=== PATIENT | female | born 1995 | race Two or more races ===

== ENCOUNTER 2022-03-25 18:46 | Inpatient (IN) | payer MEDICAID, OTHER ==
[~2022-03-25] VITALS: Ht 167.6 cm; Wt 118.8 kg
--- NOTE | 2022-03-25 19:10 | NUR ---
Direct bed to 8. Dr Styles notified of S/S -in to see patient
--- NOTE | 2022-03-25 19:16 | NUR ---
CODE STROKE 191
[2022-03-25] MEDS ORDERED: IOHEXOL-350 100 ML VIAL IV ONE (19:19)
[2022-03-25] MEDS ORDERED: IV NS 0.9% 250 ML IV ONE (19:20)
--- NOTE | 2022-03-25 19:27 | NUR ---
back from ct
--- NOTE | 2022-03-25 19:28 | NUR ---
NEUROLOGIST DR. ESCOBAR ON TELE SCREEN.
--- NOTE | 2022-03-25 19:34 | NUR ---
NEUROLOGIST DR. JACOBS ON THE PHONE WITH DR. MORRISON.
--- NOTE | 2022-03-25 19:38 | NUR ---
covid swab collected sent to lab
--- NOTE | 2022-03-25 19:55 | NUR ---
MRSA SWAB COLLECTED AND SENT TO LAB. PATIENT'S BELONGINGS LIST DONE.
--- NOTE | 2022-03-25 19:56 | NUR ---
IJEOMA IV LINE EST, UNABLE TO DRAW BLOOD WORK. CALLED HOUSE SUP FOR MID LINE
[2022-03-25] MEDS ORDERED: IV NS 0.9% 1,000 ML BAG IV ONE (20:00)
[2022-03-25] MEDS ORDERED: HYDROMORPHONE INJ 2 MG/ML DISP.SYRIN IV ONE ×2 (20:00→21:30)
[2022-03-25] MEDS ORDERED: diphenhydrAMINE HCL 25 MG CAPSULE PO ONE (20:00)
[2022-03-25] MEDS ORDERED: HYDROMORPHONE INJ 2 MG/ML DISP.SYRIN ONE ×2 (20:04→21:22)
[2022-03-25] MEDS ORDERED: diphenhydrAMINE HCL 50 MG CAPSULE ONE (20:05)
--- NOTE | 2022-03-25 20:48 | NUR ---
MIDLINE NURSE AT BEDSIDE
--- NOTE | 2022-03-25 20:51 | NUR ---
PT REFUSED MIDLINE. ER INFORMED.
[2022-03-25] MEDS ORDERED: diphenhydrAMINE HCL 50 MG/ML VIAL ONE (21:22)
[2022-03-25] MEDS ORDERED: diphenhydrAMINE HCL 50 MG/ML VIAL IM ONE (21:30)
--- NOTE | 2022-03-25 21:30 | NUR ---
BLOOD WORK COLLECTED SENT TO LAB
[2022-03-25 21:49] LABS: BASOPHILS # (AUTO) 0.1 K/uL (0.0-0.2); BASOPHILS % (AUTO) 0.7 % (0.0-2.0); HEMATOCRIT 32 % (33-45); HEMOGLOBIN 10.2 g/dL (11.5-14.8); LYMPHOCYTES # (AUTO) 2.3 K/uL (0.8-4.8); LYMPHOCYTES % (AUTO) 31.2 % (20.0-44.0); MEAN CORPUSCULAR HGB CONC 32 g/dl (31.0-36.0); MEAN CORPUSCULAR VOLUME 74 fL (82-100); MONOCYTES # (AUTO) 0.3 K/uL (0.1-1.30); MONOCYTES % (AUTO) 4.1 % (2.0-12.0); NEUTROPHILS # (AUTO) 4.5 K/uL (1.8-8.9); PLATELET COUNT (AUTO) 298 K/uL (150-450); RED BLOOD CELL COUNT(AUTO) 4.36 MIL/uL (4.0-5.2); WHITE BLOOD COUNT (AUTO) 7.2 K/uL (4.3-11.0)
[2022-03-25 22:33] LABS: CALCIUM, SERUM 8.8 mg/dL (8.5-10.1); CARBON DIOXIDE 27 mmol/L (21-32); CHLORIDE 105 mmol/L (98-107); CREATININE 0.9 mg/dL (0.6-1.3); GLUCOSE 89 mg/dL (74-106); POTASSIUM 3.9 mmol/L (3.5-5.1); SODIUM SERUM 140 mmol/L (136-145); UREA NITROGEN, BLOOD 11 mg/dL (7-18)
[2022-03-25 22:39] LABS: ALANINE AMINOTRANSFERASE 40 U/L (12-78); ALBUMIN 3.6 g/dL (3.4-5.0); ALKALINE PHOSPHATASE 139 U/L (46-116); ASPARTATE AMINOTRANSFERASE 17 U/L (15-37); BILIRUBIN,DIRECT 0.1 mg/dL (0.0-0.2); BILIRUBIN,TOTAL 0.2 mg/dL (0.2-1.0); TOTAL PROTEIN, SERUM 8.1 g/dL (6.4-8.2)
--- NOTE | 2022-03-25 23:05 | NUR ---
REPORT GIVEN TO JOVANA GALAN
--- NOTE | 2022-03-25 23:25 | NUR ---
PT TRANSFERRED UNDER ACLS
--- NOTE | 2022-03-25 23:43 | NUR ---
ROOF PROMENADE TILE SETTER NOTE PATIENT CAME IN UNIT AT [facility] [employer] ACCOMMODATED BY 2 ER PERSONNEL. PATIENT A/OX4. UNCOOPERATIVE. C/O 08/06 PAIN GENERALIZED AND ASKING FOR PAIN MEDICATION ALREADY. ALREADY MESSAGED CERTIFIED INDUSTRIAL HYGIENIST ARNULFO MAGAÑA DNP. PER DOCTOR, HE HAS NOT SEEN PATIENT YET. AWAITING FOR DOCTOR ARNULFO. PATIENT REFUSING V/S AND TELE MONITOR, AND ASSESSMENTS/QUESTIONING AT THIS TIME, BEFORE SEEN BY MD. WILL CONTINUE WITH ADMISSION PROCESS PATIENT ALLOWS.
[2022-03-26] MEDS ORDERED: LIDOCAINE 1% INJ 50 ML MDV IJ ONE ×2 (00:50→01:00)
[2022-03-26] MEDS ORDERED: diphenhydrAMINE HCL 50 MG/ML VIAL IV ONE ×2 (01:00→01:30)
[2022-03-26] MEDS ORDERED: HYDROMORPHONE INJ 2 MG/ML DISP.SYRIN IV ONE (01:00)
[2022-03-26] MEDS ORDERED: ACETAMINOPHEN 325 MG TABLET PO PRN (02:00)
[2022-03-26] MEDS ORDERED: MAGNESIUM HYDROXIDE 30 ML UDC PO PRN (02:00)
[2022-03-26] MEDS ORDERED: ONDANSETRON HCL/PF 4 MG/2 ML VIAL IVP PRN (02:00)
[2022-03-26] MEDS ORDERED: diphenhydrAMINE HCL ELIX 25 MG/10 ML UDC PO PRN (02:00)
[2022-03-26] MEDS ORDERED: ENOXAPARIN SODIUM 120 MG/0.8 ML DISP.SYRIN SQ SCH (02:00)
[2022-03-26 02:16] VITALS: BP 146/72
--- NOTE | 2022-03-26 03:07 | NUR ---
CERTIFIED TECHNICIAN SPECIALIST NOTE PATIENT REFUSING SCHEDULED LOVENOX. WANTING HER PAIN MEDICATION AGAIN. ONLY BEEN 89 MINUTES SINCE THE LAST DILAUDID GIVEN. PRN DOSE ORDERED Q3, TOLD THE PATIENT THE NEXT WOULD BE @0420 SINCE I JUST GAVE IT TO HER @0119 PER PATIENT "PAGE THE DOCTOR COS I CANNOT WAIT THAT LONG". MESSAGED JUKEBOX COIN COLLECTOR DOCTOR. PER JUKEBOX COIN COLLECTOR ARCHANA ROMEROAY TO START PRN AT 0300 AM.
[2022-03-26] MEDS ORDERED: IV LR 1000 ML 1,000 ML IV PRN (03:30)
[2022-03-26] MEDS: HYDROMORPHONE INJ 2 MG/ML DISP.SYRIN IV PRN ×2 (04:56→08:46)
[2022-03-26 05:00] VITALS: BP 138/72
[2022-03-26] MEDS: ENOXAPARIN SODIUM 60 MG/0.6 ML DISP.SYRIN SQ SCH ×2 (05:06→15:45)
--- NOTE | 2022-03-26 05:48 | NUR ---
CIRCULAR TANK COOPER NOTE- OMNICELL DISCREPANCY PULLED 2 2MG OF DILAUDID INSTEAD OF ONE. MISSED THE ORDER, THOUGHT IT WAS FOR 3 MG BUT ORDER IS 2MG. TIRED TO SOLVE DISCREPANCY WITH CHARGE NURSE BUT OMNICELL IS SAYING NO DISCREPANCY. RE-COUNTED X3 WITH CHARGE NURSE TO MAKE SURE. 13 DILAUDID IN OMNICELL AT THIS TIME. WASTED THE DILAUDID IN PROPER BIN WITNESSED BY CHARGE.
--- NOTE | 2022-03-26 07:30 | NUR ---
PT RECEIVED RESTING COMFORTABLY IN BED. NO S/S OR C/O PAIN OR DISTRESS NOTED. SIDE RAILS UP X2. CALL LIGHT LEFT WITHIN REACH. WILL CONTINUE PLAN OF CARE.
[2022-03-26 08:00] VITALS: BP 108/59
[2022-03-26] MEDS ORDERED: ENOX40DI SQ (08:27)
[2022-03-26] MEDS: PANTOPRAZOLE 40 MG TABLET.DR PO SCH (08:47)
[2022-03-26 12:00] VITALS: BP 120/52
[2022-03-26] MEDS: HYDROMORPHONE 1 MG/1 ML DISP.SYRIN IV PRN ×5 (12:03→23:55)
[2022-03-26] MEDS: ASPIRIN 81 MG TAB.CHEW PO SCH (12:30)
[2022-03-26 14:39] LABS: BASOPHILS # (AUTO) 0.1 K/uL (0.0-0.2); BASOPHILS % (AUTO) 0.8 % (0.0-2.0); EOSINOPHILS % (AUTO) 2.4 % (0.0-6.0); HEMATOCRIT 30 % (33-45); HEMOGLOBIN 9.6 g/dL (11.5-14.8); LYMPHOCYTES # (AUTO) 2.9 K/uL (0.8-4.8); LYMPHOCYTES % (AUTO) 40.2 % (20.0-44.0); MEAN CORPUSCULAR HGB CONC 32 g/dl (31.0-36.0); MEAN CORPUSCULAR VOLUME 73 fL (82-100); MONOCYTES # (AUTO) 0.4 K/uL (0.1-1.30); MONOCYTES % (AUTO) 5.2 % (2.0-12.0); NEUTROPHILS # (AUTO) 3.7 K/uL (1.8-8.9); NEUTROPHILS % (AUTO) 51.4 % (43.0-81.0); PLATELET COUNT (AUTO) 374 K/uL (150-450); RED BLOOD CELL COUNT(AUTO) 4.08 MIL/uL (4.0-5.2); WHITE BLOOD COUNT (AUTO) 7.2 K/uL (4.3-11.0)
[2022-03-26 15:11] LABS: BILIRUBIN,TOTAL 0.2 mg/dL (0.2-1.0); CALCIUM, SERUM 8.1 mg/dL (8.5-10.1); CREATININE 0.9 mg/dL (0.6-1.3); MAGNESIUM 1.9 mg/dL (1.8-2.4); POTASSIUM 3.9 mmol/L (3.5-5.1)
[2022-03-26 15:35] LABS: THYROID STIMULATING HORMONE 2.155 uIU/mL (0.358-3.74)
[2022-03-26 16:00] VITALS: BP 109/73
[2022-03-26 16:59] LABS: LYMPHOCYTES % (MANUAL) 34 % (16-48); MONOCYTES % (MANUAL) 2 % (0-11.0); NEUTROPHILS % (MANUAL) 64 (42-76)
[2022-03-26] MEDS: [UNRECOGNIZED DRUG - OTHER] IV PRN ×2 (17:15→23:56)
--- NOTE | 2022-03-26 18:55 | NUR ---
CHANGE OF SHIFT REPORT PT RESTING COMFORTABLY IN BED. NO S/S OR C/O PAIN OR DISTRESS NOTED. SIDE RAILS UP X2, CALL LIGHT LEFT WITHIN REACH. PT KEPT CLEAN, DRY, AND COMFORTABLE. NO SIGNIFICANT CHANGES SINCE PREVIOUS SHIFT. WILL GIVE REPORT TO MIRTA WHALEY.
[2022-03-26 20:00] VITALS: BP 119/62
--- NOTE | 2022-03-26 20:05 | NUR ---
RN OPENING NOTES RECEIVED PT IN BED, AWAKE, SITTING UPRIGHT. AOx4, ABLE TO MAKE NEEDS KNOWN. ON RA AND TOLERATING WELL. NO SOB NOTED. NO S/SX OF RESPIRATORY DISTRESS NOTED. TELE MONITOR REFUSED PER DAY NURSE. IV ACCESS IN LFA #24G AND NANDA MIDLINE RUNNING 1/2 NS @ 150 ML/HR. SAFETY PRECAUTIONS IN PLACE: BED IN LOWEST, LOCKED POSITION, SIDERAILS UPx2, AND BRAKES ON. TABLE AND CALL LIGHT WITHIN REACH. WILL CONTINUE TO MONITOR.
--- NOTE | 2022-03-26 20:52 | NUR ---
RN NOTES ADMINISTERED DILAUDID FOR PAIN PER MD ORDER. VS WNL. WILL CONTINUE TO MONITOR.
[2022-03-26] MEDS: ATORVASTATIN 40 MG TABLET PO SCH (21:09)
--- NOTE | 2022-03-26 23:57 | NUR ---
RN NOTES ADMINISTERED DILAUDID FOR PAIN PER MD ORDER. VS WNL. WILL CONTINUE TO MONITOR.
[2022-03-27] VITALS: BP 135/74
[2022-03-27] MEDS: ENOXAPARIN SODIUM 60 MG/0.6 ML DISP.SYRIN SQ SCH ×2 (02:37→15:00)
--- NOTE | 2022-03-27 02:37 | NUR ---
RN NOTE PT REFUSED LOVENOX. EDUCATED PT TO WHY SHE IS RECEIVING LOVENOX EVERY 12 HOURS. SHE STILL REFUSED SAYING "SHE HAS MASSES ON HER BILATERAL UPPER ARMS AND IN HER LEFT LOWER QUADRANT." MASSES PALPATED. WILL CONTINUE TO MONITOR
[2022-03-27] MEDS: HYDROMORPHONE 1 MG/1 ML DISP.SYRIN IV PRN ×8 (02:57→23:05)
--- NOTE | 2022-03-27 02:57 | NUR ---
RN NOTES ADMINISTERED DILAUDID FOR PAIN PER MD ORDER. VS WNL. WILL CONTINUE TO MONITOR.
--- NOTE | 2022-03-27 05:56 | NUR ---
RN NOTES ADMINISTERED DILAUDID FOR PAIN. VS WNL. WILL CONTINUE TO MONITOR.
[2022-03-27 06:27] LABS: BASOPHILS # (AUTO) 0.1 K/uL (0.0-0.2); HEMATOCRIT 30 % (33-45); HEMOGLOBIN 9.5 g/dL (11.5-14.8); LYMPHOCYTES # (AUTO) 2.6 K/uL (0.8-4.8); LYMPHOCYTES % (AUTO) 40.4 % (20.0-44.0); MEAN CORPUSCULAR HGB CONC 32 g/dl (31.0-36.0); MEAN CORPUSCULAR VOLUME 73 fL (82-100); MONOCYTES # (AUTO) 0.4 K/uL (0.1-1.30); MONOCYTES % (AUTO) 5.7 % (2.0-12.0); NEUTROPHILS # (AUTO) 3.2 K/uL (1.8-8.9); NEUTROPHILS % (AUTO) 49.9 % (43.0-81.0); PLATELET COUNT (AUTO) 360 K/uL (150-450); RED BLOOD CELL COUNT(AUTO) 4.06 MIL/uL (4.0-5.2); WHITE BLOOD COUNT (AUTO) 6.4 K/uL (4.3-11.0)
[2022-03-27 07:01] LABS: CALCIUM, SERUM 8.9 mg/dL (8.5-10.1); CREATININE 0.8 mg/dL (0.6-1.3); PHOSPHORUS 4.9 mg/dL (2.5-4.9); POTASSIUM 4.1 mmol/L (3.5-5.1)
[2022-03-27 07:08] LABS: THYROID STIMULATING HORMONE 2.537 uIU/mL (0.358-3.74)
--- NOTE | 2022-03-27 07:19 | NUR ---
RN CLOSING NOTES PT IN BED, AWAKE. AOx4, ABLE TO MAKE NEEDS KNOWN. ON NC 2LPM AND TOLERATING WELL. NO SOB NOTED. NO S/SX OF RESPIRATORY DISTRESS NOTED. TELE MONITOR REFUSED. IV ACCESS IN LFA #24G AND NANDA MIDLINE RUNNING 1/2 NS @ 150 ML/HR. ALL ORDERS CARRIED OUT. ALL NEEDS MET. PT KEPT CLEAN AND DRY. TREATED PAIN THROUGHOUT SHIFT. PATIENT CURRENTLY SCREAMING IN PAIN. CONTACTED ARCHANA ARREDONDO FOR NEW ORDERS BUT WAS UNAVAILABLE. SAFETY PRECAUTIONS IN PLACE: BED IN LOWEST, LOCKED POSITION, SIDERAILS UPx2, AND BRAKES ON. TABLE AND CALL LIGHT WITHIN REACH. WILL ENDORSE TO ONCOMING SHIFT FOR JASON.
--- NOTE | 2022-03-27 07:25 | NUR ---
CONTRACT ADMINISTRATIVE ASSISTANT OPENING NOTES RECEIVED PATIENT IN BED, AWAKE, APPEARS SLEEPY, AOx4, ABLE TO MAKE NEEDS KNOWN. ON OXYGEN AT 2LPM VIA NASAL CANULA WITH NO SIGNS OF DISTRESS AND TOLERATING WELL. NO SOB NOTED. TELE MONITOR REFUSED FROM PREVIOUS SHIFT, STILL DOESN'T WANT TO USE IT. WITH IV ACCESS IN IJEOMA #24G ON SALINE LOCK, PATENT AND INTACT, AND NANDA MIDLINE RUNNING 1/2 NS @ 150 ML/HR. PATIENT COMPLAINED OF GENERALIZED PAIN, WAS GIVEN DILAUDID 3MG AT 0556H. NOTIFIED, WILL FOLLOW UP. SAFETY PRECAUTIONS IN PLACE: BED IN LOWEST, LOCKED POSITION, SIDERAILS UPx2, AND BRAKES ON. TABLE AND CALL LIGHT WITHIN REACH. WILL CONTINUE TO MONITOR.
[2022-03-27 08:14] VITALS: BP 130/67
[2022-03-27] MEDS: ASPIRIN 81 MG TAB.CHEW PO SCH (08:42)
[2022-03-27] MEDS: PANTOPRAZOLE 40 MG TABLET.DR PO SCH (08:43)
--- NOTE | 2022-03-27 09:00 | NUR ---
BENCH MANAGER NOTE PATIENT STILL REFUSED TO WEAR TELE MONITOR. PATIENT FOR SCHEDULED MRI BUT DOES NOT WANT TO HAVE THE MRI UNTIL SHE GETS THE DILAUDID, ATIVAN AND BENADRYL ALL ON IV. PATIENT NOTIFIED THAT SHE HAVE DILAUDID IV WHICH SHE JUST GOT, BUT BENADRYL ORAL AND NO ATIVAN ORDER. HEALTH TEACHING DONE REGARDING POSSIBLE EFFECTS AFTER USING ALL THREE MEDICATIONS AT THE SAME TIME. VERBALIZED UNDERSTANDING. SHE REFUSED TO SIGN FOR NOW. HOSPITALIST DR. ODONNELL NOTIFIED OF PATIENT'S REQUEST.
--- NOTE | 2022-03-27 09:00 | NUR ---
ASSEMBLER PRODUCTION LINE NOTE PATIENT SAID SHE IS CLAUSTRAUPHOBIC AND WANTS ATIVAN IV. NOTIFIED.
--- NOTE | 2022-03-27 09:22 | NUR ---
SS consult for stroke was requested over the weekend. SW will follow up.
--- NOTE | 2022-03-27 10:15 | NUR ---
HOSPITAL ACCOUNT MANAGER NOTE SEEN BY DR. ODONNELL.
[2022-03-27] MEDS ORDERED: LORAZEPAM INJ 2 MG/ML VIAL IV PRN (10:30)
[2022-03-27] MEDS: diphenhydrAMINE HCL 50 MG/ML VIAL IV PRN ×2 (12:50→18:48)
[2022-03-27] MEDS ORDERED: NALOXONE HCL 0.4 MG/ML AMPUL IV PRN (13:30)
[2022-03-27] MEDS: GABAPENTIN 300 MG CAPSULE PO SCH ×2 (14:03→17:00)
[2022-03-27] MEDS: oxyCODONE HCL SR 10MG TAB.SR.12H PO SCH ×2 (14:03→21:26)
[2022-03-27] MEDS: [UNRECOGNIZED DRUG - OTHER] IV PRN (15:09)
[2022-03-27 16:14] VITALS: BP 151/91
--- NOTE | 2022-03-27 19:24 | NUR ---
HOT WATER HEATER INSTALLER OPENING NOTES PATIENT IN BED, AWAKE, APPEARS SLEEPY, AOx4, ABLE TO MAKE NEEDS KNOWN. ON OXYGEN AT 2LPM VIA NASAL CANULA WITH NO SIGNS OF DISTRESS AND TOLERATING WELL. NO SOB NOTED. TELE MONITOR REFUSED FROM PREVIOUS SHIFT, STILL DOESN'T WANT TO USE IT. WITH IV ACCESS IN IJEOMA #24G ON SALINE LOCK, PATENT AND INTACT, AND NANDA MIDLINE RUNNING 1/2 NS @ 150 ML/HR. PATIENT COMPLAINED OF GENERALIZED PAIN, WAS GIVEN DILAUDID 3MG AT 0556H. NOTIFIED, WILL FOLLOW UP. NEEDS ATTENDED. SAFETY PRECAUTIONS IN PLACE: BED IN LOWEST, LOCKED POSITION, SIDERAILS UPx2, AND BRAKES ON. TABLE AND CALL LIGHT WITHIN REACH. WILL ENDORSE FOR CONTINUITY OF CARE. Addendum: 03/27/22 at 1926 by GUERLINE ORTEZ RN CLOSING NOTE
[2022-03-27] MEDS: ATORVASTATIN 40 MG TABLET PO SCH (21:26)
[2022-03-28] MEDS: diphenhydrAMINE HCL 50 MG/ML VIAL IV PRN ×4 (00:32→18:09)
[2022-03-28] MEDS: HYDROMORPHONE 1 MG/1 ML DISP.SYRIN IV PRN ×2 (02:25→05:29)
[2022-03-28] MEDS: ENOXAPARIN SODIUM 60 MG/0.6 ML DISP.SYRIN SQ SCH ×2 (02:46→15:00)
--- NOTE | 2022-03-28 05:06 | NUR ---
closing notes: refusing the Tele monitor to be placed on Refusing IV Fluids Dilaudid 3 mg given Q 3 hours with some relief from the pain noted the MD also started Oxycontin given it is ordered ATC and 2099 Bendadryl 25 mg IV given slowly Q 6 hours this shift with relief of the itching no rash seen she is pleasent and cooperative. When on the phone she get upset and yell loudly at her boyfriend Ambulates to the bathroom steady on her legs Aware she need to have the MRI this AM
[2022-03-28] MEDS: PANTOPRAZOLE 40 MG TABLET.DR PO SCH (07:30)
--- NOTE | 2022-03-28 07:30 | NUR ---
BANKRUPTCY LEGAL ASSISTANT OPENING NOTES: RECEIVED PT SITTING IN BED, A/OX4 ABLE TO VERBALIZED NEEDS. NO SOB OR CARDIAC DISTRESS NOTED. NOTED W/ NANDA MIDLINE AND LAC G#20 SALINE LOCKED. PT REFUSED IV FLUIDS AND TAIL WORKER ORDERED. SAFETY MEASURES MAINTAINED: BED LOCKED AND IN LOWEST POSITION. CALL LIGHT IN EASY REACH FOR HELP/ASSISTANCE.KEPT RESTED AND COMFORTABLE.
[2022-03-28 08:00] VITALS: BP 146/81
--- NOTE | 2022-03-28 08:59 | NUR ---
RN NOTES DR BERG ON UNIT WITH ORDER TO CHANGE BENADRYL 25MG IV TO 50 MG IV Q6HRS PRN.
[2022-03-28] MEDS: GABAPENTIN 300 MG CAPSULE PO SCH ×3 (09:00→16:57)
[2022-03-28] MEDS: FERROUS SULFATE (325 MG) 325 MG/TAB TABLET PO SCH ×2 (09:00→16:57)
[2022-03-28] MEDS: ASPIRIN 81 MG TAB.CHEW PO SCH (09:00)
[2022-03-28] MEDS ORDERED: HYDROMORPHONE INJ 2 MG/ML DISP.SYRIN IV PRN (09:00)
[2022-03-28 10:08] LABS: IMMUNOGLOBULIN A, SERUM 264 mg/dL (87-352); IMMUNOGLOBULIN G, SERUM 1378 mg/dL (586-1602); IMMUNOGLOBULIN M, SERUM 113 mg/dL (26-217)
[2022-03-28] MEDS: HYDROMORPHONE INJ 2 MG/ML DISP.SYRIN IV PRN ×3 (11:46→18:09)
--- NOTE | 2022-03-28 12:00 | NUR ---
RN NOTES PT PICKED-UP BY PARENT COACH JV VIA WHEELCHAIR FOR MRI OF HEAD, NECK AND BRAIN WITH CONTRAST.
[2022-03-28 13:07] LABS: *SPE A/G RATIO 0.8 (0.7-1.7); *SPE ALPHA-1-GLOBULIN 0.2 g/dL (0.0-0.4); *SPE ALPHA-2-GLOBULIN 1.1 g/dL (0.4-1.0); *SPE BETA GLOBULIN 1.3 g/dL (0.7-1.3); *SPE M-SPIKE Not Observed g/dL (Not Observed)
--- NOTE | 2022-03-28 14:32 | NUR ---
SS Note: SS received consult for stroke. Pt. Is a 26-year-old female who demonstrates adequate insight to the reason for hospitalization. Per EMR, pt. is here with stroke like symptoms and got admitted to [facility] for sickle cell anemia. Pt. was oriented x3, alert, and was hardly cooperative. During interview, pt. was capable of following directions and appeared unkempt. Pt.s speech was at a normal rate and pt.s mood was elevated. Pt. reported no hx of mental health, substance abuse, suicidal ideation, or homicidal ideation. Pt. denies auditory hallucinations, visual hallucinations, paranoia, or delusions. SW explored pt.s living situation. Per pt., she resides with friends [[address] [place] [address]]. Pt. refused to continue with interview and stated that she wants to leave. JUAN and nurse Ellis educated pt. that she can sign AMA or continue with her care. Plan: JUAN provided available resources and pt. refused. Pt. refused to answer further questions, unable to fill out PHQ9. Pt. is still deciding whether she wants to leave AMA. SW will be available as needed.
[2022-03-28 15:03] LABS: BASOPHILS % (AUTO) 0.5 % (0.0-2.0); EOSINOPHILS % (AUTO) 2.4 % (0.0-6.0); HEMATOCRIT 31 % (33-45); LYMPHOCYTES # (AUTO) 2.3 K/uL (0.8-4.8); LYMPHOCYTES % (AUTO) 34.2 % (20.0-44.0); MEAN CORPUSCULAR HGB CONC 33 g/dl (31.0-36.0); MEAN CORPUSCULAR VOLUME 72 fL (82-100); MONOCYTES # (AUTO) 0.4 K/uL (0.1-1.30); MONOCYTES % (AUTO) 5.4 % (2.0-12.0); NEUTROPHILS # (AUTO) 3.9 K/uL (1.8-8.9); NEUTROPHILS % (AUTO) 57.5 % (43.0-81.0); PLATELET COUNT (AUTO) 374 K/uL (150-450); RED BLOOD CELL COUNT(AUTO) 4.28 MIL/uL (4.0-5.2); WHITE BLOOD COUNT (AUTO) 6.7 K/uL (4.3-11.0)
[2022-03-28 15:26] LABS: ALBUMIN 3.3 g/dL (3.4-5.0); BILIRUBIN,TOTAL 0.2 mg/dL (0.2-1.0); CREATININE 0.9 mg/dL (0.6-1.3); TOTAL PROTEIN, SERUM 7.5 g/dL (6.4-8.2)
[2022-03-28 16:00] VITALS: BP 124/80
[2022-03-28] MEDS ORDERED: GADOTERATE MEGLUMINE 10 MMOL/20 ML VIAL IV ONE (16:00)
[2022-03-28 16:19] LABS: CALCIUM, SERUM 9.3 mg/dL (8.5-10.1)
[2022-03-28 16:47] LABS: EOSINOPHILS % (MANUAL) 5 % (0-4); LYMPHOCYTES % (MANUAL) 31 % (16-48); MONOCYTES % (MANUAL) 4 % (0-11.0); NEUTROPHILS % (MANUAL) 60 (42-76)
--- NOTE | 2022-03-28 18:57 | NUR ---
RN AMA/ CLOSING NOTES PT VERBALIZED THAT SHE WANTS TO LEAVE HOSPITAL AMA. PT WAS FULLY A/O X4. ABLE TO MAKE NEEDS KNOWN. EXPLAINED RISKS AND CONSEQUENCES OF LEAVING THE HOSPITAL TO PT, ALSO EXPLAINED BENEFITS OF CONTINUED TREATMENT AND HOSPITALIZATION, PT VERBALIZED UNDERSTANDING BUT PT STILL INSISTED OF LEAVING AMA. MD MADE AWARE. PT SIGNED AMA FORM. RIGHT UPPER MIDLINE REMOVED, NO ACTIVE BLEEDING NOTED, DRY PRESSURE DRESSING APPLIED AT SITE. NAME ARMBAND REMOVED. ALL BELONGINGS ACCOUNTED FOR AND PT SIGNED BELONGINGS LIST. REPORT GIVEN TO NIGHT NURSE MILLAN THAT PT IS CHANGING HER CLOTHES AT THIS TIME.
--- NOTE | 2022-03-28 19:05 | NUR ---
LEFT AMA SHE STATED SHE HAS AN APPOINTMENT TO KEEP ALERT AND ORIENTATED x4 AMBULATES STEADY GATE IV LINES REMOVED BY am NURSE PAPERWORK GIVEN TO THE PATIENT
[2022-04-02 07:06] LABS: *HGBFRC HEMOGLOBIN A2 2.1 % (1.8-3.2)
== END 2022-03-28 19:00 | disposition left against medical advice (07) | DRG 662 ==
LOC: ER 18:49 → TELE 22:40 → MED 03-28 13:49
PROVIDERS: ADMIT Nurse Practitioner Family; ATTEND Nurse Practitioner Acute Care
DX: D57.00 Hb-SS disease with crisis, unspecified (principal); D68.69 Other thrombophilia; E44.1 Mild protein-calorie malnutrition; G45.9 Transient cerebral ischemic attack, unspecified; E88.09 Other disorders of plasma-protein metabolism, not elsewhere classified; G43.909 Migraine, unspecified, not intractable, without status migrainosus; D50.9 Iron deficiency anemia, unspecified; Z86.711 Personal history of pulmonary embolism; G51.0 Bell's palsy; G89.4 Chronic pain syndrome; Z79.01 Long term (current) use of anticoagulants; Z91.041 Radiographic dye allergy status; E66.01 Morbid (severe) obesity due to excess calories; Z68.41 Body mass index [BMI] 40.0-44.9, adult; Z79.891 Long term (current) use of opiate analgesic; Z20.822 Contact with and (suspected) exposure to COVID-19; R29.701 NIHSS score 1
CPT/HCPCS: 36415; 70450-TC; 70544-TC; 70547-TC; 70553-TC; 71045-TC; 80048-TC; 80053-TC; 80061-TC; 80076-TC; 82607-TC; 82728-TC; 82784; 82962-TC; 83540-TC; 83735-TC; 84100-TC; 84155; 84165; 84443-TC; 84484-TC; 84702-TC; 85025-TC; 85045-TC; 85730-TC; 86334; 87081-TC; 92507-TC; 92521; 93880-TC; 97110-TC; 97116-TC; 97530-TC; A9575; C9803; G0378; J1170; J1200; J1650; J2060; J3490; J7030; J7050; J7120; Q0163; Q9967

== ENCOUNTER 2022-04-06 21:42 | Emergency (ER) | payer MEDICAID ==
[~2022-04-06 21:42] MED LIST: ENOX40DI SQ
--- NOTE | 2022-04-06 22:05 | NUR ---
CALL TO TRIAGE NO ANSWER
--- NOTE | 2022-04-06 22:20 | NUR ---
PT NOT IN WAITNG ROOM
== END 2022-04-06 22:25 | disposition left against medical advice (07) ==
LOC: ER 21:51
DX: Z53.21 Procedure and treatment not carried out due to patient leaving prior to being seen by health care provider (principal)

== ENCOUNTER 2022-04-17 00:34 | Emergency (ER) | payer MEDICAID ==
[~2022-04-17] VITALS: Ht 167.6 cm; Wt 72.6 kg
--- NOTE | 2022-04-17 00:41 | NUR ---
CALLED CODE STROKE
--- NOTE | 2022-04-17 00:43 | NUR ---
RAC #18G S/L BLOOD COLLECTED AND SENT TO LAB
--- NOTE | 2022-04-17 00:45 | NUR ---
POC BS 95; DR. SHER CALVILLO AWARE
[2022-04-17] MEDS ORDERED: ASPIRIN 325 MG TABLET ONE (00:47)
[2022-04-17] MEDS ORDERED: IV NS 0.9% 250 ML IV ONE (00:48)
[2022-04-17] MEDS ORDERED: IOHEXOL-350 100 ML VIAL IV ONE (00:48)
--- NOTE | 2022-04-17 00:48 | NUR ---
LEFT FOR CT
--- NOTE | 2022-04-17 00:54 | NUR ---
PT RETURNED TO ER BED [address]
[2022-04-17 00:55] LABS: BASOPHILS % (AUTO) 0.5 % (0.0-2.0); EOSINOPHILS % (AUTO) 4.1 % (0.0-6.0); HEMATOCRIT 31 % (33-45); HEMOGLOBIN 9.7 g/dL (11.5-14.8); LYMPHOCYTES # (AUTO) 2.6 K/uL (0.8-4.8); LYMPHOCYTES % (AUTO) 39.7 % (20.0-44.0); MEAN CORPUSCULAR HGB CONC 31 g/dl (31.0-36.0); MEAN CORPUSCULAR VOLUME 73 fL (82-100); MONOCYTES # (AUTO) 0.3 K/uL (0.1-1.30); MONOCYTES % (AUTO) 5.3 % (2.0-12.0); NEUTROPHILS # (AUTO) 3.3 K/uL (1.8-8.9); NEUTROPHILS % (AUTO) 50.4 % (43.0-81.0); PLATELET COUNT (AUTO) 322 K/uL (150-450); RED BLOOD CELL COUNT(AUTO) 4.31 MIL/uL (4.0-5.2); WHITE BLOOD COUNT (AUTO) 6.5 K/uL (4.3-11.0)
--- NOTE | 2022-04-17 00:59 | NUR ---
COVID SWAB DONE AND SENT TO LAB
--- NOTE | 2022-04-17 00:59 | NUR ---
EMT AT BEDSIDE FOR EKG
--- NOTE | 2022-04-17 00:59 | NUR ---
RN AT BEDSIDE FOR COVID TEST.
[2022-04-17] MEDS ORDERED: IV NS 0.9% 1,000 ML BAG IV ONE (01:00)
[2022-04-17] MEDS ORDERED: ASPIRIN 325 MG TABLET PO ONE (01:00)
--- NOTE | 2022-04-17 01:10 | NUR ---
R&D ENGINEER AT PT'S BEDSIDE
[2022-04-17 01:13] LABS: CALCIUM, SERUM 8.3 mg/dL (8.5-10.1); CARBON DIOXIDE 28 mmol/L (21-32); CHLORIDE 104 mmol/L (98-107); CREATININE 0.9 mg/dL (0.6-1.3); GLUCOSE 103 mg/dL (74-106); POTASSIUM 4.1 mmol/L (3.5-5.1); SODIUM SERUM 139 mmol/L (136-145); UREA NITROGEN, BLOOD 8 mg/dL (7-18)
--- NOTE | 2022-04-17 01:15 | NUR ---
TELE NEURO ASSESSMNET IN PROCESS WITH DR MURILLO
[2022-04-17 01:20] LABS: ALANINE AMINOTRANSFERASE 122 U/L (12-78); ALBUMIN 3.4 g/dL (3.4-5.0); ALKALINE PHOSPHATASE 152 U/L (46-116); ASPARTATE AMINOTRANSFERASE 65 U/L (15-37); BILIRUBIN,TOTAL 0.2 mg/dL (0.2-1.0); TOTAL PROTEIN, SERUM 7.5 g/dL (6.4-8.2)
[2022-04-17 01:34] VITALS: BP 132/70
--- NOTE | 2022-04-17 02:04 | NUR ---
Patient does not wish to proceed with medical care recommended by Dr. Francisco. Patient given information related to possible complications, up to and including , which could occur as a result of leaving the hospital at this time. Patient verbalizes understanding of risks involved due to leaving against medical advice. Patient has refused to signed AMA form. IV removed. Catheter intact and site benign. Pressure and 4x4 applied to site. No bleeding noted. PT ambulatory with a steady gait
== END 2022-04-17 02:08 | disposition left against medical advice (07) ==
LOC: ER 00:35
DX: R20.0 Anesthesia of skin (principal); R53.1 Weakness; D57.00 Hb-SS disease with crisis, unspecified; Z20.822 Contact with and (suspected) exposure to COVID-19; Z53.29 Procedure and treatment not carried out because of patient's decision for other reasons; R74.01 Elevation of levels of liver transaminase levels; Z88.0 Allergy status to penicillin; Z86.711 Personal history of pulmonary embolism; Z79.01 Long term (current) use of anticoagulants
CPT/HCPCS: 36415; 70450; 71045; 80048; 80076; 82962; 84484; 85025; 85730; 87426; 93005; 96360; 99285; C9803; J7030; J7050; Q9967